=== PATIENT | female | born 1965 | race African-American/Black ===

== ENCOUNTER 2022-06-26 04:01 | Day surgery (SDC) | payer OTHER ==
[2022-06-22 13:13] VITALS: BMI 34.0
[2022-06-26] MEDS ORDERED: KETOROLAC TROMETHAMINE 30 MG/1 ML VIAL ONE (10:44)
[2022-06-26] MEDS ORDERED: DEXAMETHASONE SOD PHOSPHATE 4 MG/1 ML VIAL ONE (10:44)
[2022-06-26] MEDS ORDERED: LIDOCAINE HCL/PF 2% SDV 5ML VIAL ONE (10:44)
[2022-06-26] MEDS ORDERED: ONDANSETRON 4 MG/2 ML VIAL ONE ×2 (10:44→12:29)
[2022-06-26] MEDS ORDERED: PROPOFOL 20 ML ONE ×3 (10:44→11:24)
[2022-06-26] MEDS ORDERED: MIDAZOLAM HCL 2 MG/2 ML SINGLE DOSE VIAL ONE (11:24)
[2022-06-26] MEDS ORDERED: IBUPROFEN 800 MG/8 ML IJ IVPB PRN ×2 (12:28→13:14)
[2022-06-26] MEDS ORDERED: oxyCODONE HCL 5 MG TABLET PO PRN ×2 (12:28→13:14)
[2022-06-26] MEDS ORDERED: IBUPROFEN 600 MG TABLET (FP) PO PRN ×2 (12:28→13:14)
[2022-06-26] MEDS ORDERED: ONDANSETRON 4 MG/2 ML VIAL IVPUSH PRN ×3 (12:28→13:14)
[2022-06-26] MEDS ORDERED: ELECTROLYTE-148 SOLN 1,000 ML IV SCH ×2 (12:30→13:15)
[2022-06-26] MEDS ORDERED: LACTATED RINGERS SOLUTION 1,000 ML IV SCH (13:15)
[2022-06-26 14:54] VITALS: RESP 18; TEMP 97.2
[2022-06-26 16:28] VITALS: BP 122/67; PULSE 76
== END 2022-06-26 14:00 | disposition home or self-care (01) ==
LOC: JASU-SURG 04:01
PROVIDERS: ATTEND Obstetrics & Gynecology
PROC: 0UB98ZZ Excision of Uterus, Via Natural or Artificial Opening Endoscopic (ICD-10-PCS; principal; 2022-06-26 11:00)
DX: N95.0 Postmenopausal bleeding (principal); N84.0 Polyp of corpus uteri; D25.0 Submucous leiomyoma of uterus
CPT/HCPCS: 88305-TC; 94760